=== PATIENT | male | born 1950 | race Caucasian/White ===

== ENCOUNTER 2019-09-28 06:22 | Day surgery (SDC) | payer OTHER, SELFPAY ==
[~2019-09-28] VITALS: Ht 167.6 cm; Wt 81.6 kg
[2019-09-28] MEDS ORDERED: fentaNYL citrate 0.05 MG/ML VIAL ONE (08:08)
[2019-09-28] MEDS ORDERED: LIDOCAINE 2% 100 MG/5 ML UJET TP ONE (08:08)
[2019-09-28] MEDS ORDERED: fentaNYL citrate 0.05 MG/ML VIAL IVP ONE (09:05)
== END 2019-09-28 10:10 | disposition home or self-care (01) ==
LOC: MFCC 06:22 → MDS 06:22
PROVIDERS: ATTEND Internal Medicine Gastroenterology
DX: Z12.11 Encounter for screening for malignant neoplasm of colon (principal); D12.3 Benign neoplasm of transverse colon; D12.5 Benign neoplasm of sigmoid colon; Z11.59 Encounter for screening for other viral diseases
CPT/HCPCS: 45385; J3010; U0003

== ENCOUNTER 2021-03-27 06:10 | Day surgery (SDC) | payer OTHER, SELFPAY ==
[~2021-03-27] VITALS: Ht 165.1 cm; Wt 86.2 kg
[2021-03-27] MEDS ORDERED: LIDOCAINE 2% 1000 MG/50 ML VIAL INJ ONE (07:12)
[2021-03-27 07:49] LABS: BASOPHILS % (AUTO) 0.9 % (0.0-2.0); EOSINOPHILS % (AUTO) 1.8 % (0.0-4.0); HEMATOCRIT 35.2 % (36-52); HEMOGLOBIN 11.7 g/dL (12.0-18.0); LYMPHOCYTES # (AUTO) 0.9 K/uL (2.0-11.5); LYMPHOCYTES % (AUTO) 33.1 % (20.5-51.1); MEAN CORPUSCULAR HEMOGLOBIN 29 pg (27-31); MEAN CORPUSCULAR HGB CONC 33 g/dL (33-37); MEAN CORPUSCULAR VOLUME 88.2 fL (80-94); MONOCYTES # (AUTO) 0.3 K/uL (0.8-1.0); MONOCYTES % (AUTO) 12.4 % (1.7-9.3); NEUTROPHILS # (AUTO) 1.5 K/uL (1.8-7.7); NEUTROPHILS % (AUTO) 51.8 % (42.2-75.2); RED BLOOD CELL COUNT(AUTO) 3.99 MIL/uL (4.20-6.10); RED CELL DISTRIBUTION WIDTH 15.3 % (11.6-13.7); WHITE BLOOD COUNT (AUTO) 2.8 K/uL (4.8-10.8)
[2021-03-27 07:52] LABS: PLATELET COUNT (AUTO) 67 K/uL (140-450)
[2021-03-27 08:48] LABS: PROTHROMBIN TIME 11.9 secs (10.8-13.4)
== END 2021-03-27 09:35 | disposition home or self-care (01) ==
LOC: MDS 06:10 → MMU 06:11 → MDS 09:35
PROVIDERS: ATTEND Internal Medicine Gastroenterology
DX: D69.6 Thrombocytopenia, unspecified (principal); I10 Essential (primary) hypertension; E11.9 Type 2 diabetes mellitus without complications; R14.0 Abdominal distension (gaseous); Z79.84 Long term (current) use of oral hypoglycemic drugs; Z20.822 Contact with and (suspected) exposure to COVID-19; Z79.899 Other long term (current) drug therapy
CPT/HCPCS: 36415; 47000; 76942; 82948; 85025; 85610; 85730; 87426; 88307; 88313; J2001; Q0092